=== PATIENT | female | born 1995 | race African-American/Black ===

== ENCOUNTER 2016-09-18 15:52 | Emergency (ER) | payer BC ==
[~2016-09-18] VITALS: Ht 160 cm; Wt 65.8 kg
[~2016-09-18 15:52] MED LIST: ASPIR 8181 MG PO; IBUPROFEN 200200 M1 PO; NAPROSYN500 MG PO; NEXPLANON68 MG SQ; PENICILLIN VK500 M1 PO; TYLENOL325 MG PO; VICODIN 5-5001 EACH PO; ZPAK PO
[2016-09-18 16:41] LABS: URINE BILIRUBIN NEGATIVE (Negative); URINE BLOOD NEGATIVE (Negative); URINE COLOR YELLOW; URINE GLUCOSE-RANDOM* NEGATIVE (Negative); URINE KETONES NEGATIVE (Negative); URINE LEUKOCYTES-REFLEX 1+ (Negative); URINE PROTEIN (DIPSTICK) NEGATIVE (Negative); URINE SPECIFIC GRAVITY 1.025 (1.003-1.035); URINE UROBILINOGEN 0.2 E.U./dl (0.2-1.0)
[2016-09-18] MEDS ORDERED: DOXYCYCLINE 10100 MG PO (16:49)
[2016-09-18 16:53] LABS: CASTS None Seen /LPF (None Seen); CRYSTALS None Seen /LPF (None Seen); SQUAMOUS 4-10 Moderate /LPF (0-3); URINE RBC 0-2 Rare /HPF (0-2); URINE WBC-REFLEX 0-5 Rare /HPF (0-5)
[2016-09-18 17:42] VITALS: BP 127/77
[2016-09-20 15:06] LABS: CHLAMYDIA TRACHOMATIS-PCR Negative (Negative); NEISSERIA GONORRHEA-PCR Negative (Negative)
== END 2016-09-18 17:42 | disposition home or self-care (01) ==
LOC: ER 15:52
PROVIDERS: Physician Assistant
DX: N73.8 Other specified female pelvic inflammatory diseases (principal); N89.8 Other specified noninflammatory disorders of vagina; Z88.5 Allergy status to narcotic agent